=== PATIENT | female | born 1980 ===

== ENCOUNTER 2017-06-12 19:40 | Emergency (ER) | payer MEDICAID ==
[2017-06-12 19:48] VITALS: TEMP 97.9; O2SAT 98
--- NOTE | 2017-06-12 19:59 | C.PDOC ---
History Of Present Illness 36 year old female presents to the ED with complaints of rash to her left upper back this morning. Patient reports burning to the area since yesterday and has not taken any medications. She denies shortness of breath, chest pain, or difficult swallowing. Time Seen by Provider: 06/12/17 19:50 Chief Complaint (Nursing): Abnormal Skin Integrity History Per: Patient History/Exam Limitations: no limitations Onset/Duration Of Symptoms: Days (2 days), Worse Since (this morning, with appears of rash ) Current Symptoms Are (Timing): Still Present Location Of Injury: Left: Back (upper back ) Quality Of Symptoms: Itching, Other (burning ) Recent travel outside of the [place]: No Past Medical History Reviewed: Historical Data, Nursing Documentation, Vital Signs Vital Signs: Last Vital Signs Temp 97.9 F 06/12/17 19:45 Pulse 71 06/12/17 20:17 Resp 18 06/12/17 20:17 BP 130/72 06/12/17 20:17 Pulse Ox 98 06/12/17 20:45 Family History: States: Unknown Family Hx - Social History Hx Alcohol Use: No Hx Substance Use: No Review Of Systems Constitutional: Negative for: Fever, Chills ENT: Negative for: Throat Pain, Throat Swelling Respiratory: Negative for: Cough, Shortness of Breath Skin: Positive for: Rash Physical Exam - Physical Exam Appears: Non-toxic, No Acute Distress Skin: Warm, Dry, Rash (papules and vesicular lesions on erythematous base to the left upper back in dermatomal distribution) Head: Atraumatic, Normacephalic Eye(s): bilateral: Normal Inspection, PERRL, EOMI Nose: Normal, No Discharge Oral Mucosa: Moist Neck: Supple Chest: Symmetrical, No Deformity Cardiovascular: Rhythm Regular, No Murmur Respiratory: No Rales, No Rhonchi, No Wheezing, Other (clear to auscultation bilaterally ) Extremity: Bilateral: Atraumatic, Normal ROM Neurological/Psych: Oriented x3, Normal Speech ED Course And Treatment O2 Sat by Pulse Oximetry: 98 (RA) Pulse Ox Interpretation: Normal Medical Decision Making Medical Decision Making: rash to back consistent with zoster Disposition Counseled Patient/Family Regarding: Diagnosis, Need For Followup, Rx Given - Disposition Disposition: HOME/ ROUTINE Disposition Time: 19:55 Condition: STABLE Additional Instructions: Take medication five times per day for one week Take pain medicine as needed follow up with your primary doctor Prescriptions: Acyclovir [Zovirax] 800 mg PO 5XD #35 tab Ibuprofen [Motrin] 600 mg PO Q8 #30 tab Instructions: Shingles (DC) Print Language: [place] - POA Present On Arrival: None - Clinical Impression Clinical Impression: Herpes zoster - 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 - Scribe Statement The provider has reviewed the documentation as recorded by the Scribvenkatesh Hartman All medical record entries made by the Estrada were at my direction and personally dictated by me. I have reviewed the chart and agree that the record accurately reflects my personal performance of the history, physical exam, medical decision making, and the department course for this patient. I have also personally directed, reviewed, and agree with the discharge instructions and disposition.
[2017-06-12 20:17] VITALS: BP 130/72; PULSE 71; RESP 18
== END 2017-06-12 20:18 | disposition home or self-care (01) ==
LOC: C.ER 19:40
DX: B02.9 Zoster without complications (principal)

== ENCOUNTER 2017-10-01 10:41 | Emergency (ER) | payer MEDICAID ==
--- NOTE | 2017-10-01 11:34 | C.PDOC ---
History Of Present Illness 37 yr old female presents to the ER for evaluation of fever, sore throat, dry cough, bilateral ear fullness, body aches and malaise for the past 2 days. Patient states she her kids at home are sick also. Denies chest pain, SOB, nausea, vomiting, abdominal pain, diarrhea, headache or dizziness. Time Seen by Provider: 10/01/17 11:23 Chief Complaint (Nursing): ENT Problem History Per: Patient History/Exam Limitations: no limitations Onset/Duration Of Symptoms: Days (2) Current Symptoms Are (Timing): Still Present Sick Contacts (Context): Family Member(s) (kids) Past Medical History Reviewed: Historical Data, Nursing Documentation, Vital Signs Vital Signs: Last Vital Signs Temp 99.4 F 10/01/17 10:43 Pulse 87 10/01/17 10:43 Resp 19 10/01/17 10:43 BP 148/94 H 10/01/17 10:43 Pulse Ox 99 10/01/17 11:34 Family History: States: No Known Family Hx - Social History Hx Alcohol Use: No Hx Substance Use: No Review Of Systems Except As Marked, All Systems Reviewed And Found Negative. Constitutional: Positive for: Fever (subjective), Malaise, Other ((+) body aches ) ENT: Positive for: Throat Pain (sore throat), Other ((+) bilateral ear fullness) Cardiovascular: Negative for: Chest Pain Respiratory: Positive for: Cough (dry). Negative for: Shortness of Breath Gastrointestinal: Negative for: Nausea, Vomiting, Abdominal Pain, Diarrhea Neurological: Negative for: Headache, Dizziness Physical Exam - Physical Exam Appears: Non-toxic, No Acute Distress Skin: Warm, Dry, No Rash Head: Atraumatic, Normacephalic Eye(s): bilateral: Normal Inspection, PERRL, EOMI Ear(s): Bilateral: Normal Oral Mucosa: Moist Throat: Normal, No Erythema, No Exudate, No Drooling Neck: Normal, Normal ROM, Supple Cardiovascular: Rhythm Regular, No Murmur Respiratory: Normal Breath Sounds, No Rales, No Rhonchi, No Stridor, No Wheezing Gastrointestinal/Abdominal: Normal Exam, Soft, No Tenderness, No Guarding, No Rebound Neurological/Psych: Oriented x3, Normal Speech ED Course And Treatment O2 Sat by Pulse Oximetry: 99 (RA) Pulse Ox Interpretation: Normal Medical Decision Making Medical Decision Making: Patient with multi-symptom complaint. Patient appears well non-toxic and in no acute distress. No clinical signs of pneumonia or dehydration. Based on history , exam and widespread influenza, will treat for the flu. Rx for Tamiflu given. Patient advised on supportive treatment. Patient stable for discharge and instructed to follow up with PCP or clinic. Disposition Counseled Patient/Family Regarding: Diagnosis, Need For Followup, Rx Given - Disposition Referrals: [facility] [Outside] [facility] [email or web address] [facility] [Outside] Disposition: HOME/ ROUTINE Disposition Time: 11:32 Condition: GOOD Additional Instructions: You have influenza, which is virus that can last 7-10 days. Take Tamiflu twice a day for 5 days to shorten the course. Take Tylenol or Motrin alternating every 4-6 hours for Fever 100.4F or higher. Rest and drink plenty of fluids. Follow up with your primary medical doctor or clinic in 1 week for further evaluation. Usted tiene influenza, que es un virus que puede durar de 7 a 10 caceres. Drake Tamiflu dos veces al da jono 5 caceres para acortar el curso. Drake Tylenol o Motrin alternando cada 4-6 horas para Fiebre 100.4F o superior. Descansa y tremaine muchos lquidos. June un seguimiento con villarreal mdico primario o clnica en 1 semana para inocencio evaluacin adicional. Prescriptions: Oseltamivir [Tamiflu] 75 mg PO BID #10 cap Instructions: Influenza (ED) Forms: [employer] (Haitian) Print Language: FRENCH - POA Present On Arrival: None - Clinical Impression Clinical Impression: Influenza - PA / NURSE QUALITY / Resident Statement MD/DO has reviewed & agrees with the documentation as recorded. - Scribe Statement The provider has reviewed the documentation as recorded by the Scribe Neeta Haji All medical record entries made by the Scribe were at my direction and personally dictated by me. I have reviewed the chart and agree that the record accurately reflects my personal performance of the history, physical exam, medical decision making, and the department course for this patient. I have also personally directed, reviewed, and agree with the discharge instructions and disposition.
[2017-10-01 12:03] VITALS: BP 121/81; PULSE 78; RESP 16; TEMP 98.4
[2017-10-01 13:00] VITALS: O2SAT 99
== END 2017-10-01 12:03 | disposition home or self-care (01) ==
LOC: C.ER 10:41
DX: J11.1 Influenza due to unidentified influenza virus with other respiratory manifestations (principal)

== ENCOUNTER 2017-12-15 21:47 | Emergency (ER) | payer MEDICAID ==
[2017-12-15 22:03] VITALS: BP 128/82; RESP 20; TEMP 98; O2SAT 98
--- NOTE | 2017-12-15 22:43 | C.PDOC ---
History Of Present Illness 37 year old female presents to the ER with a complaint of diffuse muscle/body aches and diffuse body aches. Patient states she had shingles 7 months ago and suspects she has a rash to the upper back area which she describes as itchy but not painful. Denies fever, SOB, or throat swelling. Time Seen by Provider: 12/15/17 22:18 Chief Complaint (Nursing): Abnormal Skin Integrity History Per: Patient History/Exam Limitations: no limitations Onset/Duration Of Symptoms: Hrs Current Symptoms Are (Timing): Still Present Location Of Injury: Posterior: Back (upper) Quality Of Symptoms: Itching Recent travel outside of the [place]: No Past Medical History Reviewed: Historical Data, Nursing Documentation, Vital Signs Vital Signs: Last Vital Signs Temp 98 F 12/15/17 22:55 Pulse 88 12/15/17 22:55 Resp 20 12/15/17 22:55 BP 128/82 12/15/17 22:55 Pulse Ox 98 12/15/17 22:55 Family History: States: Unknown Family Hx - Social History Hx Alcohol Use: No Hx Substance Use: No - Immunization History Hx Tetanus Toxoid Vaccination: No Hx Influenza Vaccination: No Hx Pneumococcal Vaccination: No Review Of Systems Constitutional: Negative for: Fever, Chills ENT: Negative for: Throat Swelling Respiratory: Negative for: Shortness of Breath Skin: Positive for: Rash (upper back) Physical Exam - Physical Exam Appears: Non-toxic Skin: Normal Color, Warm, Dry Head: Atraumatic, Normacephalic Eye(s): bilateral: Normal Inspection Oral Mucosa: Moist Neck: Normal, Supple, Other (Normal thyroid) Chest: Symmetrical, No Tenderness Cardiovascular: Rhythm Regular Respiratory: Normal Breath Sounds, No Rales, No Rhonchi, No Wheezing Neurological/Psych: Oriented x3, Normal Speech ED Course And Treatment O2 Sat by Pulse Oximetry: 98 (Room air) Pulse Ox Interpretation: Normal Progress Note: Patient with stable vitals and unremarkable physical exam, will advise to take motrin and tylenol for symptoms, increase fluid intake, and follow up with PMD for further evaluation. 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 - Scribe Statement The provider has reviewed the documentation as recorded by the Scribe Romeo Mcgee All medical record entries made by the Scribe were at my direction and personally dictated by me. I have reviewed the chart and agree that the record accurately reflects my personal performance of the history, physical exam, medical decision making, and the department course for this patient. I have also personally directed, reviewed, and agree with the discharge instructions and disposition.
[2017-12-15 22:56] VITALS: PULSE 88
== END 2017-12-15 22:56 | disposition home or self-care (01) ==
LOC: C.ER 21:47
DX: M79.1 Myalgia (principal)

== ENCOUNTER 2018-11-02 14:45 | Emergency (ER) | payer MEDICAID ==
[2018-11-02 15:00] VITALS: BMI 25.3
[2018-11-02 15:03] VITALS: BP 148/89; PULSE 94; RESP 18; TEMP 98.6; O2SAT 100
[2018-11-02] MEDS ORDERED: Lidocaine 5% Patch TD STA (16:30)
[2018-11-02] MEDS ORDERED: Lidocaine 5% Patch TD ONE (16:36)
--- NOTE | 2018-11-02 17:05 | C.PDOC ---
History Of Present Illness 38 y/o female presents to the ER complaining of right sided rib pain which began yesterday. Patient states that pain is located under the right breast and radiates to the lateral back. Patient reports the pain is worse with movement and she rates the pain 8/10. She notes that she took Tylenol without relief. Denies having direct trauma, SOB, fever,chills, nausea, and vomiting. Time Seen by Provider: 11/02/18 16:10 Chief Complaint (Nursing): Rib Injury History Per: Patient History/Exam Limitations: no limitations Onset/Duration Of Symptoms: Days Current Symptoms Are (Timing): Still Present Severity: Moderate Past Medical History Reviewed: Historical Data, Nursing Documentation, Vital Signs Vital Signs: Last Vital Signs Temp 98.6 F 11/02/18 15:00 Pulse 94 H 11/02/18 15:00 Resp 18 11/02/18 15:00 BP 148/89 11/02/18 15:00 Pulse Ox 100 11/02/18 15:00 - Medical History PMH: No Chronic Diseases Surgical History: Appendectomy Family History: States: No Known Family Hx - Social History Hx Alcohol Use: No Hx Substance Use: No - Immunization History Hx Tetanus Toxoid Vaccination: No Hx Influenza Vaccination: No Hx Pneumococcal Vaccination: No Review Of Systems Except As Marked, All Systems Reviewed And Found Negative. Constitutional: Negative for: Fever, Chills Respiratory: Negative for: Shortness of Breath Gastrointestinal: Negative for: Nausea, Vomiting Musculoskeletal: Positive for: Other (right sided rib pain) Neurological: Negative for: Headache Physical Exam - Physical Exam Appears: Non-toxic, No Acute Distress Skin: Normal Color, Warm, Dry Head: Atraumatic, Normacephalic Eye(s): bilateral: Normal Inspection Nose: Normal Oral Mucosa: Moist Neck: Supple Chest: Symmetrical, Tenderness (tenderness to palpation alongside right rib region) Cardiovascular: Rhythm Regular Respiratory: Normal Breath Sounds, No Rales, No Rhonchi, No Wheezing Neurological/Psych: Oriented x3, Normal Speech ED Course And Treatment O2 Sat by Pulse Oximetry: 100 (RA) Pulse Ox Interpretation: Normal Medical Decision Making Medical Decision Making: Plan: --X-Ray-RT Chest and Ribs- negative --Lidoderm Patch Disposition Counseled Patient/Family Regarding: Studies Performed, Diagnosis, Need For Followup, Rx Given - Disposition Referrals: Tiffanie Minaya MD [Medical Doctor] - Disposition: HOME/ ROUTINE Disposition Time: 17:03 Condition: STABLE Additional Instructions: Start Naproxen twice a day continue Lidocaine patch as needed for pain Rest that area/ hold off on strenuous exercise Follow up with PMD in 1-2 days Return to ED if symptoms worsen Prescriptions: Lidocaine 5% [Lidoderm] 1 patch TOP DAILY PRN #30 patch PRN Reason: pain Naproxen [Naprosyn] 500 mg PO BID #30 tab Instructions: Costochondritis (DC) Forms: [employer] 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 - Scribe Statement The provider has reviewed the documentation as recorded by the Estrada Gilliland Provider Attestation All medical record entries made by the Meryibvenkatesh were at my direction and personally dictated by me. I have reviewed the chart and agree that the record accurately reflects my personal performance of the history, physical exam, medical decision making, and the department course for this patient. I have also personally directed, reviewed, and agree with the discharge instructions and disposition.
--- NOTE | 2018-11-02 17:43 | RAD ---
Date of service: 11/02/2018 PROCEDURE: Radiographs of the Chest and Right Ribs. HISTORY: rib pain/ sob COMPARISON: None available. TECHNIQUE: Frontal radiograph of the chest and multiple oblique radiographs of the right ribs were obtained. FINDINGS: RIGHT RIBS: No acute displaced fracture identified. LUNGS: No focal consolidation. Please note that chest x-ray has limited sensitivity for the detection of pulmonary masses. PLEURA: No significant pleural effusion. No definite pneumothorax. CARDIOVASCULAR: Heart size appears within normal limits. OTHER FINDINGS: None. IMPRESSION: Unremarkable radiographs of the chest and right ribs. No appreciable displaced right rib fracture.
== END 2018-11-02 17:28 | disposition home or self-care (01) ==
LOC: C.ER 14:45
DX: R07.81 Pleurodynia (principal); M94.0 Chondrocostal junction syndrome [Tietze]